=== PATIENT | male | born 1970 | race Asian ===

== ENCOUNTER → 2016-06-29 | Outpatient (CLI) | payer BC | LOC: COL.RAD 15:16 | DX: Z53.9 Procedure and treatment not carried out, unspecified reason (principal) ==

== ENCOUNTER → 2016-06-29 | Outpatient (REF) | LOC: WSOH 13:15 | DX: Z00.00 Encounter for general adult medical examination without abnormal findings (principal) ==

== ENCOUNTER → 2016-06-29 | Outpatient (REF) | LOC: WSOH 13:18 | DX: Z00.00 Encounter for general adult medical examination without abnormal findings (principal) ==